=== PATIENT | female | born 1945 | race Asian ===

== ENCOUNTER → 2019-01-28 14:17 | Outpatient (CLI) | payer MEDICARE, SELFPAY ==
--- NOTE | 2019-01-28 | DI.ECHO.S_ITS ---
[place] +---------+ [facility] +---------+ : : [address] : : : : [id number] : : : : Phone: [phone]+ Echocardiogram Report + + :Name: RAHEL FIELDS Study Date: 01/28/2019 Height: 60 in : :[facility] Weight: 130 lb : : Gender: Female BSA: 1.6 m2 : :: 1945 Age: 73 yrs BP: 136/82 mmHg: :Reason For Study: MURMUR : : Performed By: Temp Staff : :Referring: DEMI CLARK : + + Interpretation Summary 1) Normal left ventricular size, thickness, wall motion, and systolic function (EF 65-70%). 2) Normal right ventricular size and function. 3) The left atrium is moderately dilated. 4) There is slight aortic valve calcification with mild aortic regurgitation but no stenosis. 5) No prior Echo available for comparison. Procedure: A two-dimensional transthoracic echocardiogram with color flow and Doppler was performed. The study quality was technically adequate. There is no prior echocardiogram noted for this patient. The patient was in normal sinus rhythm during the exam. Left Ventricle: The left ventricle is normal in size. There is normal left ventricular wall thickness. Left ventricular systolic function is normal. The ejection fraction is estimated to be 65-70%. Left ventricular wall motion is normal. Right Ventricle: The right ventricle is normal in size and function. Atria: The left atrium is moderately dilated. The right atrium is mildly dilated. The interatrial septum is intact with no evidence for an atrial septal defect. Mitral Valve: The mitral valve leaflets appear mildly thickened, but open well. There is mild mitral annular calcification. There is trace mitral regurgitation. Aortic Valve: The aortic valve is trileaflet. The aortic valve opens well. The aortic valve is slightly calcified. There is no aortic valve stenosis. There is mild aortic regurgitation. Tricuspid Valve: The tricuspid valve is normal in structure and function. There is trace tricuspid regurgitation. Pulmonary artery pressures cannot be estimated because of the lack of a measurable TR jet velocity. Pulmonic Valve: The pulmonic valve is not well visualized. There is trace pulmonic regurgitation. Great Vessels: The aortic root is normal size. The dimensions of the ascending aorta are normal. The pulmonary artery is normal size. The IVC is of normal diameter and collapses greater than 50% with a sniff. This suggests a low right atrial pressure of 3 mm Hg. Pericardium/ Pleura There is no pericardial effusion. There is no pleural effusion. MMode/2D Measurements & Calculations LVIDd: 4.8 cm LVOT diam: 1.8 cm LVIDs: 2.9 cm Ao root diam: 2.9 cm FS: 39.1 % Aortic Jxn: 2.6 cm EPSS: 0.25 cm IVSd: 1.1 cm LVPWd: 1.0 cm LV jain. diameter/BSA (cm/m^2): 3.1 LV sys. diameter/BSA (cm/m^2): 1.9 LA A2 area: 20.5 cm2 RA long axis: 4.9 cm LA A4 area: 22.5 cm2 RA area: 15.8 cm2 LA length (vol): 5.8 cm RA vol: 43.2 ml LA vol: 68.0 ml RA : 27.8 ml/m2 LA vol index: 43.8 ml/m2 TAPSE: 2.6 cm Doppler Measurements & Calculations Ao V2 max: 162.4 cm/sec LVOT Max Zain: 138.0 cm/sec Ao V2 mean: 114.5 cm/sec LV V1 max P.6 mmHg Ao max P.6 mmHg LV V1 VTI: 39.0 cm Ao mean P.9 mmHg LEONOR(I,D): 2.3 cm2 Ao V2 VTI: 40.6 cm LEONOR(V,D): 2.1 cm2 sev ratio: 0.96 LEONOR indexed to BSA (cm^2/m^2): 1.5 MV E max zain: 92.6 cm/sec PA V2 max: 66.9 cm/sec MV A max zain: 108.4 cm/sec PA V2 mean: 51.9 cm/sec MV E/A: 0.85 PA mean P.2 mmHg Med Peak E' Zain: 6.3 cm/sec PA Accel Time: 0.14 sec E/E' med: 14.7 Lat Peak E' Zain: 10.8 cm/sec E/E' lat: 8.6 E/e' average: 11.7 MV dec time: 0.17 sec SV(LVOT): 94.3 ml Reading Physician:04:31 PM
--- NOTE | 2019-01-28 | DI.US.S_ITS ---
PROCEDURE: US CAROTID DOPPLER BI INDICATIONS: Other specified symptoms and signs involving the c TECHNIQUE: Color and pulse Doppler interrogation was performed of both carotid systems, with image documentation and velocity measurements. COMPARISON: None. FINDINGS: Stenosis calculations are based on SRU (Society of Radiologists in Ultrasound) criteria. Right side: Brachial blood pressure: Not obtained. Common carotid artery peak systolic velocity: 96 cm/sec. Internal carotid artery peak systolic velocity: 104 cm/sec. Internal carotid artery end diastolic velocity: 26 cm/sec. External carotid artery peak systolic velocity: 83 cm/sec. ICA/CCA peak systolic ratio: 1.1. Agustin scale imaging description: Heavy scattered plaque. Percent internal carotid artery stenosis: Less than 50%. Vertebral artery: Flow direction is antegrade. Left side: Brachial blood pressure: Not obtained. Common carotid artery peak systolic velocity: 90 cm/sec. Internal carotid artery peak systolic velocity: 96 cm/sec. Internal carotid artery end diastolic velocity: 26 cm/sec. External carotid artery peak systolic velocity: 76 cm/sec. ICA/CCA peak systolic ratio: 1.1. Agustin scale imaging description: Heavy scattered plaque. Percent internal carotid artery stenosis: Less than 50%. Vertebral artery: Flow direction is antegrade. IMPRESSION: Less than 50% bilateral internal carotid artery stenosis. Dictated by: Robel [facility] Interpreted: Tony Noonan MD on 01/28/2019 at 16:45 Approved by: Tony Noonan M.D. on 01/29/2019 at 9:11
== END ==
PROVIDERS: PCP Nurse Practitioner Gerontology; Visit Provider Internal Medicine Cardiovascular Disease
DX: I35.1 Nonrheumatic aortic (valve) insufficiency (principal); I65.23 Occlusion and stenosis of bilateral carotid arteries; R01.1 Cardiac murmur, unspecified; R09.89 Other specified symptoms and signs involving the circulatory and respiratory systems
CPT/HCPCS: 93306; 93880